=== PATIENT | male | born 1955 | race Caucasian/White ===

== ENCOUNTER 2019-06-12 05:23 | Observation (INO) | payer MEDICARE, BC ==
[2019-06-12] MEDS ORDERED: CEFAZOLIN 1 GM/50 ML (PMX) 50 ML IVPB (06:00)
[2019-06-12] MEDS ORDERED: LACTATED RINGER'S 1,000 ML IV (06:00)
[2019-06-12] MEDS: ACETAMINOPHEN 1000MG/100ML IV 100 ML IVPB (06:40)
[2019-06-12] MEDS: DEXAMETHASONE 4 MG/ML 1 ML INJ IV (06:41)
[2019-06-12] MEDS: oxyCODONE (CR) 10 MG TAB [oxyCONTIN] PO (06:42)
[2019-06-12] MEDS: LANSOPRAZOLE 30 MG CAP PO (06:42)
[2019-06-12] MEDS: ONDANSETRON 4 MG INJ IV (06:42)
[2019-06-12] MEDS ORDERED: TRANEXAMIC ACID 1GM/100ML(PMX) 200 ML (07:10)
[2019-06-12] MEDS: SOD CHLORIDE 0.9% 1,000 ML IV ×2 (07:29→12:10)
[2019-06-12] MEDS ORDERED: LIDOCAINE 2% (SDV) 5 ML INJ (07:46)
[2019-06-12] MEDS ORDERED: MIDAZOLAM 1 MG/ML 2 ML INJ (07:46)
[2019-06-12] MEDS ORDERED: ETOMIDATE 20 MG INJ (07:46)
[2019-06-12] MEDS ORDERED: PROPOFOL 20 ML (07:46)
[2019-06-12] MEDS ORDERED: FENTAnyl 50 MCG/ML VIAL (07:46)
[2019-06-12] MEDS ORDERED: CEFAZOLIN 1 GM INJ (08:00)
[2019-06-12] MEDS: TRANEXAMIC ACID 1GM/100ML(PMX) 100 ML PRE-OP X1 IVPB (08:16)
[2019-06-12] MEDS: BACITRACIN 50000 UNITS INJ (08:46)
[2019-06-12] MEDS: POLYMYXIN B 500000 UNIT INJ (08:47)
[2019-06-12] MEDS: TRANEXAMIC ACID 1GM/100ML(PMX) 100 ML INTRA-OP X1 IVPB (09:41)
[2019-06-12] MEDS: HIP PAIN COCKTAIL VANCO INJ (09:44)
[2019-06-12] MEDS ORDERED: HIP PAIN COCKTAIL (CEFUROXIME) INJ (10:00)
[2019-06-12] MEDS ORDERED: NACL 0.9% 3 ML SYG IV (10:30)
[2019-06-12] MEDS ORDERED: NALOXONE (0.4 MG/ML) INJ IV (10:30)
[2019-06-12] MEDS ORDERED: BISACODYL 10 MG SUPP PR (10:30)
[2019-06-12] MEDS ORDERED: SENNA/DOCUSATE NA (8.6MG/50MG) TAB PO (10:30)
[2019-06-12] MEDS ORDERED: MAGNESIUM HYDROXIDE 30ML CUP PO (10:30)
[2019-06-12] MEDS ORDERED: NA PHOSPHATE/BIPHOS 133 ML ENEMA PR (10:30)
[2019-06-12] MEDS ORDERED: ROPIVACAINE 0.5 % 30 ML VIAL (10:33)
[2019-06-12] MEDS ORDERED: DEXAMETHASONE 4 MG/ML 5 ML INJ (10:34)
[2019-06-12] MEDS ORDERED: HYDROmorphONE 1 MG/5 ML IV SYRINGE IV ×3 (11:00)
[2019-06-12] MEDS ORDERED: LABETALOL HCL 20MG INJ IV (11:00)
[2019-06-12] MEDS ORDERED: ONDANSETRON 4 MG INJ IV (11:00)
[2019-06-12] MEDS: CEFAZOLIN 2 GM/50 ML (PMX) 50 ML IVPB ×2 (11:13→17:56)
[2019-06-12] MEDS: DOCUSATE SODIUM 100 MG CAP PO (11:42)
[2019-06-12] MEDS: oxyCODONE 5 MG TAB PO (12:28)
[2019-06-12] MEDS: KETOROLAC 15 MG INJ IV (13:21)
[2019-06-12] MEDS: ACETAMINOPHEN 500 MG TAB PO (14:39)
[2019-06-12] MEDS: morphine 2 MG INJ IV (14:58)
[2019-06-12 16:50] LABS: ADD MAN DIFF? NO
[2019-06-12 16:54] LABS: WHITE BLOOD COUNT 19.1 10^3/ul (4.8-10.8)
[2019-06-12 16:54] LABS: ABNORMAL IP MESSAGE 1; BASOPHILS % 0.2 % (0.0-2.0); HEMATOCRIT 37.3 % (42.0-52.0); HEMOGLOBIN 12.6 g/dl (14.0-18.0); LYMPHOCYTES # 0.4 10^3/ul (0.8-2.9); LYMPHOCYTES % 1.9 % (15.0-51.0); MEAN CORPUSCULAR HGB CONC 33.8 g/dl (32.0-37.0); MEAN CORPUSCULAR VOLUME 91.9 fl (82.0-101.0); MEAN PLATELET VOLUME 9.8 fl (7.4-10.4); MONOCYTE # 0.2 10^3/ul (0.3-0.9); NEUTROPHIL # 18.4 10^3/ul (1.6-7.5); NEUTROPHILS % 96.4 % (39.0-77.0); PLATELET COUNT 308 10^3/UL (140-415); POSITIVE DIFF @See below; RED BLOOD COUNT 4.06 10^6/ul (4.70-6.10); RED CELL DISTRIBUTION WIDTH 11.9 % (11.5-14.5)
[2019-06-12 17:02] LABS: HEMOGLOBIN A1C 6.3 % (0-5.9)
[2019-06-12 17:13] LABS: ANION GAP 11 (5-13); BLOOD UREA NITROGEN 13 mg/dl (7-20); CALCIUM 8.4 mg/dl (8.4-10.2); CARBON DIOXIDE 21 mmol/L (21-31); CHLORIDE 106 mmol/L (97-110); CREATININE 0.95 mg/dl (0.61-1.24); Estimated GFR > 60 mL/min (>60); GLUCOSE 196 mg/dl (70-220); POTASSIUM 4.2 mmol/L (3.5-5.1); SODIUM 138 mmol/L (135-144)
[2019-06-12] MEDS ORDERED: GLUCOSE GEL 15 GRAM TUBE PO ×2 (17:30)
[2019-06-12] MEDS ORDERED: GLUCAGON 1 MG INJ IM (17:30)
[2019-06-12] MEDS ORDERED: DEXTROSE 50% 50 ML SYRINGE IV ×2 (17:30)
[2019-06-12] MEDS ORDERED: GLUCOSE GEL 15 GRAM TUBE BUCCAL (17:30)
[2019-06-12] MEDS: INSULIN ASPART [NOVOLOG] 3 ML PEN SC ×2 (18:00→21:32)
[2019-06-12] MEDS: TAMSULOSIN (SR) 0.4 MG CAP PO ×2 (18:04→21:18)
[2019-06-13] MEDS: oxyCODONE 5 MG TAB PO ×4 (00:07→19:46)
[2019-06-13] MEDS: ACCU-CHEK XX (02:00)
[2019-06-13] MEDS: SOD CHLORIDE 0.9% 1,000 ML IV ×2 (02:31→07:30)
[2019-06-13] MEDS: CEFAZOLIN 2 GM/50 ML (PMX) 50 ML IVPB (02:33)
[2019-06-13 05:27] LABS: ADD MAN DIFF? NO
[2019-06-13 05:33] LABS: BASOPHILS % 0.1 % (0.0-2.0); HEMOGLOBIN 10.7 g/dl (14.0-18.0); LYMPHOCYTES # 0.8 10^3/ul (0.8-2.9); LYMPHOCYTES % 5.1 % (15.0-51.0); MEAN CORPUSCULAR HEMOGLOBIN 30.7 pg (29.0-33.0); MEAN CORPUSCULAR HGB CONC 33.4 g/dl (32.0-37.0); MEAN PLATELET VOLUME 9.9 fl (7.4-10.4); MONOCYTE # 0.9 10^3/ul (0.3-0.9); MONOCYTES % 5.5 % (0.0-11.0); NEUTROPHIL # 13.9 10^3/ul (1.6-7.5); NEUTROPHILS % 88.9 % (39.0-77.0); PLATELET COUNT 278 10^3/UL (140-415); RED BLOOD COUNT 3.48 10^6/ul (4.70-6.10)
[2019-06-13 05:33] LABS: WHITE BLOOD COUNT 15.7 10^3/ul (4.8-10.8)
[2019-06-13 06:06] LABS: ANION GAP 9 (5-13); BLOOD UREA NITROGEN 13 mg/dl (7-20); CALCIUM 8.5 mg/dl (8.4-10.2); CARBON DIOXIDE 24 mmol/L (21-31); CHLORIDE 106 mmol/L (97-110); CREATININE 0.81 mg/dl (0.61-1.24); Estimated GFR > 60 mL/min (>60); GLUCOSE 159 mg/dl (70-220); POTASSIUM 4.4 mmol/L (3.5-5.1); SODIUM 139 mmol/L (135-144)
[2019-06-13 06:16] LABS: CHOL/HDL RATIO 5.5 RATIO; HDL CHOLESTEROL 25 mg/dl (30-78); LDL CHOLESTEROL,CALCULATED 88 mg/dl; TRIGLYCERIDES 124 mg/dl (0-149)
[2019-06-13 06:16] LABS: CHOLESTEROL 138 mg/dl (100-200)
[2019-06-13] MEDS: DOCUSATE SODIUM 100 MG CAP PO (08:53)
[2019-06-13] MEDS: ASPIRIN (EC) 81 MG TAB PO (08:54)
[2019-06-13] MEDS: morphine 2 MG INJ IV ×2 (08:54→15:51)
[2019-06-13] MEDS: CELECOXIB 100 MG CAP PO (08:54)
[2019-06-13] MEDS: INSULIN ASPART [NOVOLOG] 3 ML PEN SC ×3 (08:57→17:47)
[2019-06-14] MEDS ORDERED: PANTOPRAZOLE (EC) 40 MG TAB PO (06:00)
== END 2019-06-13 20:50 | disposition home health service (06) ==
LOC: REC 05:23 → MS1 12:02
PROVIDERS: Orthopaedic Surgery Adult Reconstructive Orthopaedic Surgery
DX: M17.12 Unilateral primary osteoarthritis, left knee (principal); E11.9 Type 2 diabetes mellitus without complications; I10 Essential (primary) hypertension; Z79.84 Long term (current) use of oral hypoglycemic drugs; R33.8 Other retention of urine
CPT/HCPCS: 27447; 73560; 80048; 80061; 82962; 83036; 85025; 86850; 86900; 86901; 88304; 88311; 97116; 97162; 97530; 99217